=== PATIENT | male | born 1990 | race Caucasian/White ===

== ENCOUNTER 2019-02-28 18:04 | Emergency (ER) | payer MEDICAID ==
[~2019-02-28] VITALS: Ht 170.2 cm; Wt 87.0 kg
[2019-02-28 21:42] VITALS: BP 129/80
== END 2019-02-28 21:47 | disposition home or self-care (01) ==
LOC: ER 18:04
DX: R05 Cough (principal); R09.89 Other specified symptoms and signs involving the circulatory and respiratory systems; J02.9 Acute pharyngitis, unspecified
CPT/HCPCS: 71045; 99283

== ENCOUNTER 2019-03-19 14:50 | Emergency (ER) | payer MEDICAID ==
[~2019-03-19] VITALS: Ht 170.2 cm; Wt 84.0 kg
[2019-03-19 15:15] VITALS: BP 132/76
[2019-03-19] MEDS ORDERED: TETANUS, DIPHTHERIA, PERTUSSIS VAC/PF 0.5ML (>7YR OLD) IM ONE (15:45)
[2019-03-19] MEDS ORDERED: LIDOCAINE HCL/PF 1% 10 MG/ML 5ML VIAL IJ ONE (15:45)
[2019-03-19] MEDS ORDERED: BACITRACIN ZINC OINT UDPKT TOP ONE (15:45)
[2019-03-19] MEDS ORDERED: IBUPROFEN 600MG TABLET PO ONE (16:00)
== END 2019-03-19 16:30 | disposition home or self-care (01) ==
LOC: ER 14:50
DX: L60.0 Ingrowing nail (principal)
CPT/HCPCS: 10060; 90471; 90715; 99283; J3490

== ENCOUNTER 2019-03-21 21:42 | Emergency (ER) | payer MEDICAID ==
[~2019-03-21] VITALS: Ht 167.6 cm; Wt 75.0 kg
[2019-03-21 22:20] VITALS: BP 139/74
[2019-03-22] MEDS ORDERED: BACITRACIN ZINC OINT UDPKT TOP ONE
== END 2019-03-22 00:30 | disposition home or self-care (01) ==
LOC: ER 21:42
DX: Z48.00 Encounter for change or removal of nonsurgical wound dressing (principal); L60.0 Ingrowing nail
CPT/HCPCS: 99283

== ENCOUNTER 2019-03-31 07:16 | Emergency (ER) | payer MEDICAID ==
[~2019-03-31] VITALS: Ht 170.2 cm; Wt 91.0 kg
[2019-03-31 07:54] VITALS: BP 129/75
== END 2019-03-31 08:51 | disposition home or self-care (01) ==
LOC: ER 07:16
DX: S91.21 Laceration without foreign body of toe with damage to nail (principal); X58.XXXD Exposure to other specified factors, subsequent encounter
CPT/HCPCS: 99281

== ENCOUNTER 2019-08-06 14:24 | Emergency (ER) | payer MEDICAID ==
[~2019-08-06] VITALS: Ht 170.2 cm; Wt 82.0 kg
[2019-08-06] MEDS ORDERED: IBUPROFEN 400MG TABLET PO ONE (16:45)
[2019-08-06] MEDS ORDERED: LIDOCAINE HCL/PF 1% 10 MG/ML 5ML VIAL IJ ONE (16:45)
[2019-08-06] MEDS ORDERED: BACITRACIN ZINC OINT UDPKT TOP ONE (16:45)
[2019-08-06 18:20] VITALS: BP 118/77
== END 2019-08-06 18:34 | disposition home or self-care (01) ==
LOC: ER 14:31
DX: L60.0 Ingrowing nail (principal)
CPT/HCPCS: 11730; 99283; J3490